=== PATIENT | female | born 1990 | race American Indian/Alaskan Native ===

== ENCOUNTER 2016-12-10 17:39 | Emergency (ER) | payer SELFPAY ==
[2016-12-10 20:20] LABS: Bilirubin,Urine NEG (Negative); Blood,Urine SM (Negative); Ketones,Urine NEG (Negative); Leukocyte Esterase,Urine NEG (Negative); Mucus,Urine 1+ /HPF; Nitrite,Urine NEG (Negative); Protein,Urine <15 mg/dL mg/dL (Negative)
[2016-12-10] MEDS ORDERED: MOTRIN PO ONE (21:38)
--- NOTE | 2016-12-10 21:43 | Emergency Department Report ---
ED Female HPI - General Chief complaint: Urogenital-Female Stated complaint: PELVIC PAIN Time Seen by Provider: 12/10/16 19:30 Source: patient Mode of arrival: Ambulatory Limitations: No Limitations - History of Present Illness Initial comments: 26 -Citizen Of [place] female comes in complaint of pelvic pain and dysuria for a week. Patient reports that she is having pelvic pain that is worse when she bends her knees towards her chest. She complains of dyspareunia. She's taken no pain medications she denies any vaginal discharge denies any vaginal bleeding. Patient pushes a past medical history of thyroid disease and has not had a thyroid checked since high school. She currently takes no other medications no known drug allergies. MD Complaint: pelvic pain -: week(s) (1) Location: suprapubic Severity scale (0 -10): 5 Quality: sharp Consistency: intermittent Improves with: none Worsens with: intercourse, movement Are you Now?: No Last Menstrual Period: 12/08/16 EDC: 09/14/17 Associated Symptoms: dysuria. denies: vaginal discharge, vaginal bleeding, abdominal pain, nausea/vomiting, fever/chills, loss of appetite - Related Data Sexually active: Yes Previous Rx's Medication Instructions Recorded Last Taken Type Ibuprofen [Motrin] 800 mg PO Q8HR PRN #30 tablet 12/10/16 Unknown Rx Allergies Allergy/AdvReac Type Severity Reaction Status Date / Time No Known Allergies Allergy Unverified 12/10/16 17:49 ED Review of Systems ROS: Stated complaint: PELVIC PAIN Other details as noted in HPI ED Past Medical Hx - Past Medical History Previous Medical History?: No - Surgical History Past Surgical History?: No - Social History Smoking Status: Current Some Day Smoker Substance Use Type: Alcohol, Marijuana - Medications Home Medications: Home Medications Medication Instructions Recorded Confirmed Last Taken Type Ibuprofen [Motrin] 800 mg PO Q8HR PRN #30 tablet 12/10/16 Unknown Rx ED Physical Exam - General Limitations: No Limitations General appearance: alert, in no apparent distress - Head Head exam: Present: atraumatic, normocephalic - Eye Eye exam: Present: normal appearance - Respiratory Respiratory exam: Present: normal lung sounds bilaterally. Absent: respiratory distress - Cardiovascular Cardiovascular Exam: Present: regular rate, normal rhythm. Absent: systolic murmur, diastolic murmur, rubs, gallop - GI/Abdominal GI/Abdominal exam: Present: soft, normal bowel sounds, other (suprapubic tenderness with palpation) - Back Exam Back exam: Present: normal inspection - Neurological Exam Neurological exam: Present: alert, oriented X3 - Psychiatric Psychiatric exam: Present: normal affect, normal mood - Skin Skin exam: Present: warm, dry, intact, normal color. Absent: rash ED Course Vital Signs 12/10/16 12/10/16 17:46 21:41 Temperature 98.4 F Pulse Rate 92 H Respiratory 20 18 Rate Blood Pressure 135/90 O2 Sat by Pulse 99 Oximetry ED Medical Decision Making - Medical Decision Making Patient has been evaluated by this provider fast track. Urinalysis showed trace of blood., Ultrasound of the vaginal and pelvic was ordered. Motrin 800 mg ordered for pain. Critical care attestation.: If time is entered above; I have spent that time in minutes in the direct care of this critically ill patient, excluding procedure time. ED Disposition Clinical Impression: Pelvic pain Disposition: DISCHARGED TO HOME OR SELFCARE Is pt being admited?: No Does the pt Need Aspirin: No Condition: Stable Instructions: Chlamydia Infection (ED) Additional Instructions: Take pain medication as prescribed. Follow-up to primary care provider if symptoms persist or gets worse. Prescriptions: Ibuprofen [Motrin] 800 mg PO Q8HR PRN #30 tablet PRN Reason: Pain Referrals: PRIMARY CARE, [Primary Care Provider] - 3-5 Days
--- NOTE | 2016-12-10 22:14 | Ultrasound Report ---
FINAL REPORT PROCEDURE: US PELVIC COMPLETE TECHNIQUE: Real-time transabdominal sonography in multiple planes of the pelvis was performed. The pelvic structures, especially the ovaries were not optimally visualized. Transvaginal sonography was then performed to better evaluate the structures and/or abnormalities described below with image documentation. CPT 97306 and 99689 HISTORY: pelvic pain COMPARISON: No prior studies are available for comparison. FINDINGS: UTERUS Size: 7.3 x 3.9 x 4.2 cm. Endometrial thickness: 11.2 mm. Orientation: anteverted. Cervix: Normal. Fibroids/masses: None. RIGHT Ovary: 2.3 x 1.7 x 2.0 cm. Appearance: Normal. LEFT Ovary: 2.8 x 1.8 x 1.8 cm. Appearance: Normal. Pelvic fluid: None. Other: None. IMPRESSION: Normal Examination
--- NOTE | 2016-12-10 22:16 | Ultrasound Report ---
FINAL REPORT PROCEDURE: US PELVIC TRANSVAGINAL TECHNIQUE: Real-time transvaginal sonography in multiple planes of the pelvis was performed. HISTORY: pelvic pain COMPARISON: No prior studies are available for comparison. FINDINGS: UTERUS Size: 7.3 x 3.9 x 4.2 cm. Endometrial thickness: 11.2 mm. Orientation: anteverted. Cervix: Normal. Fibroids/masses: None. RIGHT Ovary: 2.3 x 1.7 x 2.0 cm. Appearance: Normal. LEFT Ovary: 2.8 x 1.8 x 1.8 cm. Appearance: Normal. Pelvic fluid: None. Other: None. IMPRESSION: Normal Examination
[2016-12-10] MEDS ORDERED: ZITHROMAX PO ONE (23:29)
[2016-12-10 23:51] VITALS: BP 129/78
== END 2016-12-10 23:40 | disposition home or self-care (01) ==
LOC: ED 17:39
DX: R10.2 Pelvic and perineal pain (principal); F17.200 Nicotine dependence, unspecified, uncomplicated; F12.10 Cannabis abuse, uncomplicated
CPT/HCPCS: 76830; 76856; 81001; 81025; 87591; 99284